=== PATIENT | male | born 1990 | race Caucasian/White ===

== ENCOUNTER 2017-10-30 16:58 | Emergency (ER) | payer MEDICAID ==
[~2017-10-30] VITALS: Ht 177.8 cm; Wt 109.0 kg
[2017-10-30] MEDS ORDERED: VALACYCLOVIR HCL 500MG TABLET PO STA (17:34)
[2017-10-30] MEDS ORDERED: PREDNISONE 20MG TABLET PO ONE (17:45)
[2017-10-30 17:54] VITALS: BP 124/81
== END 2017-10-30 18:15 | disposition home or self-care (01) ==
LOC: ER 17:19
DX: G51.0 Bell's palsy (principal)
CPT/HCPCS: 99283; J7512; Z7610

== ENCOUNTER 2018-05-04 07:08 | Emergency (ER) | payer MEDICAID ==
[~2018-05-04] VITALS: Ht 177.8 cm; Wt 109.0 kg
[2018-05-04 07:45] VITALS: BP 126/83
== END 2018-05-04 10:42 | disposition home or self-care (01) ==
LOC: ER 07:47
DX: R07.89 Other chest pain (principal)
CPT/HCPCS: 71045; 93005; 99284

== ENCOUNTER 2019-01-31 19:04 | Emergency (ER) | payer MEDICAID ==
[~2019-01-31] VITALS: Ht 172.7 cm; Wt 107.0 kg
[2019-02-01 01:03] LABS: MONOTEST NEGATIVE (NEGATIVE)
[2019-02-01 03:17] VITALS: BP 130/68
== END 2019-02-01 03:20 | disposition home or self-care (01) ==
LOC: ER 19:13
DX: J02.9 Acute pharyngitis, unspecified (principal)
CPT/HCPCS: 86308; 87070; 87430; 99283

== ENCOUNTER 2019-04-15 22:12 | Emergency (ER) | payer MEDICAID ==
[~2019-04-15] VITALS: Ht 167.6 cm; Wt 107.0 kg
[2019-04-15 22:32] VITALS: BP 148/87
== END 2019-04-16 03:27 | disposition left against medical advice (07) ==
LOC: ER 23:46
DX: Z53.21 Procedure and treatment not carried out due to patient leaving prior to being seen by health care provider (principal)

== ENCOUNTER 2021-05-06 13:59 | Emergency (ER) | payer MEDICAID ==
[~2021-05-06] VITALS: Ht 180.3 cm; Wt 88.0 kg
[2021-05-06] MEDS ORDERED: KETOROLAC 60MG/2ML VIAL IM ONE (14:45)
[2021-05-06] MEDS ORDERED: NAPR-681 MT (16:16)
[2021-05-06 16:24] VITALS: BP 138/73
== END 2021-05-06 16:25 | disposition home or self-care (01) ==
LOC: ER 13:59
DX: M25.561 Pain in right knee (principal); M79.89 Other specified soft tissue disorders
CPT/HCPCS: 73562; 96372; 99283; J1885; L1830

== ENCOUNTER 2022-06-18 02:07 | Emergency (ER) | payer MEDICAID ==
[~2022-06-18] VITALS: Ht 177.8 cm; Wt 105.0 kg
[~2022-06-18 02:07] MED LIST: NAPR-681 MT
[2022-06-18 03:58] LABS: BASOPHILS % 0.4 % (0.0-2.0); EOSINOPHILS % 0.3 % (0.0-5.0); HEMATOCRIT. 45.9 % (42.0-52.0); HEMOGLOBIN. 15.3 g/dL (14.0-18.0); LYMPHOCYTES % 9.8 % (20.0-50.0); MEAN CORPUSCULAR HEMOGLOBIN 27.6 pg (28.0-32.0); MEAN CORPUSCULAR VOLUME 83.1 fL (80.0-94.0); MEAN PLATELET VOLUME 8.4 fl (7.4-10.4); MONOCYTES % 8.6 % (2.0-8.0); NEUTROPHILS % 80.9 % (40.0-76.0); PLATELET 239 x1000/uL (130-400); RED BLOOD CELL COUNT 5.53 mill/uL (4.7-6.1); RED CELL DISTRIBUTION WIDTH 13.9 % (11.6-14.6)
[2022-06-18 04:06] LABS: CHLORIDE 108 mEq/L (98-107)
[2022-06-18] MEDS ORDERED: SODIUM CHLORIDE 0.9% 1,000 ML IV ONE (05:45)
[2022-06-18 05:54] LABS: CLARITY URINE CLEAR (CLEAR); COLOR URINE YELLOW (YELLOW); KETONES URINE NEGATIVE (NEGATIVE); LEUKOCYTE ESTERASE URINE NEGATIVE (NEGATIVE); NITRITE URINE NEGATIVE (NEGATIVE); OCCULT BLOOD URINE 1+ (NEGATIVE); PROTEIN URINE NEGATIVE (NEGATIVE); SPECIFIC GRAVITY URINE 1.009 (1.005-1.030); UROBILINOGEN URINE 0.2 E.U./dL (0.2-1.0)
[2022-06-18] MEDS ORDERED: TAMSULOSIN HCL 0.4MG SR CAPSULE PO ONE (06:00)
[2022-06-18] MEDS ORDERED: KETOROLAC 30MG/ML VIAL IV ONE (06:00)
[2022-06-18 06:15] VITALS: BP 129/75
[2022-06-18] MEDS ORDERED: TAMS-11 MT (08:52)
[2022-06-18] MEDS ORDERED: TRAM50TA3 MT (09:04)
[2022-06-18] MEDS ORDERED: CEPH500C2 MT (09:04)
== END 2022-06-18 09:33 | disposition home or self-care (01) ==
LOC: ER 02:07
DX: N20.0 Calculus of kidney (principal); E78.00 Pure hypercholesterolemia, unspecified; Z98.890 Other specified postprocedural states
CPT/HCPCS: 36415; 74176; 80053; 81003; 83690; 85025; 87086; 96374; 99284; J1885; J7030

== ENCOUNTER 2024-12-31 12:52 | Emergency (ER) | payer MEDICAID ==
[~2024-12-31] VITALS: Ht 182.9 cm; Wt 91.0 kg
[~2024-12-31 12:52] MED LIST changes: +CEPH500C2 MT; +TAMS-11 MT; +TRAM50TA3 MT
[2024-12-31 13:04] VITALS: O2SAT 99
[2024-12-31 16:01] LABS: CHLORIDE 107 mEq/L (98-107); SODIUM 138 mEq/L (136-145)
[2024-12-31 16:02] LABS: CARBON DIOXIDE 22 mEq/L (21-32)
[2024-12-31 16:03] LABS: CALCIUM 9.4 mg/dL (8.7-10.4)
[2024-12-31 16:07] LABS: CREATININE 0.9 mg/dL (0.6-1.3); GLUCOSE 97 mg/dL (70-105); UREA NITROGEN BLOOD 17 mg/dL (9-23)
[2024-12-31 16:09] LABS: ALANINE AMINOTRANSFERASE 62 IU/L (10-49); ALBUMIN 4.7 g/dL (3.2-4.8); ASPARTATE AMINOTRANSFERASE 33 IU/L (<34)
[2024-12-31 16:10] LABS: BILIRUBIN TOTAL 0.8 mg/dL (0.1-1.0); PROTEIN TOTAL 8.3 g/dL (6.0-8.3)
[2024-12-31 16:17] LABS: BASOPHILS % 0.5 % (0.0-2.0); EOSINOPHILS % 1.2 % (0.0-5.0); HEMATOCRIT. 48.4 % (42.0-52.0); HEMOGLOBIN. 16.4 g/dL (14.0-18.0); MEAN CORPUSCULAR HEMOGLOBIN 28.9 pg (28.0-32.0); MEAN CORPUSCULAR HGB CONC 33.8 g/dL (31.0-37.0); MEAN CORPUSCULAR VOLUME 85.5 fL (80.0-94.0); MEAN PLATELET VOLUME 8.9 fl (7.4-10.4); MONOCYTES % 8.6 % (2.0-8.0); NEUTROPHILS % 63.7 % (40.0-76.0); PLATELET 232 x1000/uL (130-400); RED BLOOD CELL COUNT 5.67 mill/uL (4.7-6.1); RED CELL DISTRIBUTION WIDTH 13.8 % (11.6-14.6); WHITE BLOOD COUNT 8.9 x1000/uL (4.5-11.0)
[2024-12-31 16:20] LABS: CLARITY URINE CLEAR (CLEAR); COLOR URINE YELLOW (YELLOW); GLUCOSE URINE NEGATIVE (NEGATIVE); KETONES URINE NEGATIVE (NEGATIVE); LEUKOCYTE ESTERASE URINE NEGATIVE (NEGATIVE); NITRITE URINE NEGATIVE (NEGATIVE); OCCULT BLOOD URINE 3+ (NEGATIVE); PROTEIN URINE NEGATIVE (NEGATIVE); SPECIFIC GRAVITY URINE 1.024 (1.005-1.030); UROBILINOGEN URINE 0.2 E.U./dL (0.2-1.0)
[2024-12-31 16:31] LABS: BACTERIA URINE FEW; SQUAMOUS EPITHELIAL CELL URINE NONE SEEN /lpf (RARE/1+); WBC URINE 0-2 /hpf (0-2); YEAST URINE NONE SEEN
[2024-12-31] MEDS: KETOROLAC 30MG/ML VIAL IM ONE (18:21)
[2024-12-31] MEDS ORDERED: TAMS-11 MT (19:12)
[2024-12-31 19:35] VITALS: BP 137/78; PULSE 87; RESP 18; TEMP 37; O2SAT 96
== END 2024-12-31 19:35 | disposition home or self-care (01) ==
LOC: ER 12:52
DX: M54.50 Low back pain, unspecified (principal); E78.00 Pure hypercholesterolemia, unspecified; Z79.1 Long term (current) use of non-steroidal anti-inflammatories (NSAID); F10.90 Alcohol use, unspecified, uncomplicated; Y90.9 Presence of alcohol in blood, level not specified
CPT/HCPCS: 99285; 76770; 80053; 81003; 83690; 85025; 36415; 96372; J1885

== ENCOUNTER 2025-11-05 11:54 | Emergency (ER) | payer MEDICAID ==
[~2025-11-05] VITALS: Ht 172.7 cm; Wt 109.0 kg
[~2025-11-05 11:54] MED LIST changes: -TAMS-11 MT; +TAMS-54 MT
[2025-11-05 12:12] VITALS: O2SAT 98
[2025-11-05] MEDS: KETOROLAC 15MG/ML VIAL IM ONE (16:49)
[2025-11-05] MEDS ORDERED: IBUP-1455 MT (18:02)
[2025-11-05] MEDS ORDERED: LIDO-53 TP (18:05)
[2025-11-05 18:16] VITALS: BP 130/78; PULSE 77; RESP 16; TEMP 37.1; O2SAT 98
== END 2025-11-05 18:16 | disposition home or self-care (01) ==
LOC: ER 11:54
DX: R20.0 Anesthesia of skin (principal); E78.00 Pure hypercholesterolemia, unspecified; Z79.1 Long term (current) use of non-steroidal anti-inflammatories (NSAID); Z79.899 Other long term (current) drug therapy
CPT/HCPCS: 99283; 72100; 96372; J1885